=== PATIENT | female | born 1980 | race Caucasian/White ===

== ENCOUNTER 2016-09-09 01:19 | Emergency (ER) | payer OTHER ==
[~2016-09-09] VITALS: Ht 160 cm; Wt 79.5 kg
[2016-09-09 02:09] LABS: HEMATOCRIT 39.8 % (36.0-46.0); MCH 27.8 PG (29.0-34.0); MCHC 33.9 G/DL (30.0-36.0); MCV 81.9 FL (83-99); MEAN PLAT.VOLUME 11.1 uM^3 (9.5-12.4); PLATELET COUNT 317 K/uL (156-360); RBC DIS.WIDTH-CV 12.2 % (11.8-14.6); RBC DIS.WIDTH-SD 36.7 % (39-53); RED BLOOD COUNT 4.86 M/uL (3.80-5.20); WHITE BLOOD COUNT 11.7 K/uL (4.1-10.2)
[2016-09-09 02:20] LABS: CHLORIDE 107 mEq/L (99-109); POTASSIUM 3.3 mEq/L (3.7-5.4); SODIUM 139 mEq/L (136-147)
[2016-09-09 02:21] LABS: GLUCOSE 108 mg/dL (70-99)
[2016-09-09 02:23] LABS: ANION GAP 10 MEQ/L (2-14)
[2016-09-09 02:25] LABS: GFR ESTIMATE (CALCULATED) > 59 mL/min/
[2016-09-09 02:26] LABS: UREA NITROGEN (BUN) 17 mg/dL (9-23)
[2016-09-09 02:34] LABS: TROP-I INTERPRETATION NEGATIVE; TROPONIN-I < 0.01 ng/mL (0.0-0.30)
[2016-09-09 02:40] LABS: TOTAL BILIRUBIN 0.3 mg/dL (0.0-1.0)
[2016-09-09 02:41] LABS: ALKALINE PHOSPHATASE 67 IU/L (3-129)
[2016-09-09 02:44] LABS: DIRECT BILIRUBIN 0.1 mg/dL (0.0-0.3)
[2016-09-09 02:45] LABS: LIPASE 42 U/L (1.0-51.0)
[2016-09-09 03:14] LABS: QUANTITATIVE HCG < 4.0 MIU/ML
[2016-09-09 03:39] LABS: D-DIMER ELISA 0.27 mg/L FEU (< 0.57)
[2016-09-09 04:16] VITALS: BP 132/95
== END 2016-09-09 04:17 | disposition home or self-care (01) ==
LOC: EME 01:19
PROVIDERS: Emergency Medicine
DX: R07.9 Chest pain, unspecified (principal); R00.2 Palpitations; R20.0 Anesthesia of skin; Z73.3 Stress, not elsewhere classified; Z90.49 Acquired absence of other specified parts of digestive tract
CPT/HCPCS: 71020; 80048; 80076; 83690; 83880; 84484; 84702; 85027; 85379; 93005; 99281; 99285; J3480; J7030